=== PATIENT | male | born 1930 | race Caucasian/White ===

== ENCOUNTER 2019-08-09 09:04 | Inpatient (IN) | payer MEDICARE ==
[2019-08-09] MEDS ORDERED: ACETAMINOPHEN 650 MG SUPP.RECT PR ONE (09:10)
[2019-08-09] MEDS ORDERED: MIDAZOLAM HCL 50 MG/100 ML RTUINJ IV PRN (09:17)
--- NOTE | 2019-08-09 09:17 | ER Document Report ---
ED General - General Stated Complaint: UNRESPONSIVE Time Seen by Provider: 08/09/19 09:08 - [facility] Notes: Patient is an 88-year-old male, brought into the emergency department for evaluation via EMS. Entire history at this point is obtained from them. Ana Laura shi's family had stated normally he is "up and around" early in the morning. He did not wake up early which was strange for him. They went into his room to try to wake him, and were unable, so they called EMS. Upon arrival EMS found him with snoring and gurgling respirations, and oxygenation of 72%. They were unable to improve his oxygenation, so decision was made to proceed with intubation. He was intubated in the field. Patient was found to be febrile. His blood pressures were all normal but his lactate was elevated. According to family he is not a very compliant patient. He had a stroke last year, but would not go to the hospital for over a week. Family noted that he may have been "dragging his foot" yesterday, which was new as well. EMS also noted that he had a large amount of diarrhea and urine at the time of their initial evaluation. - Related Data Allergies/Adverse Reactions: No Known Allergies Allergy (Verified 08/09/19 09:41) Past Medical History - General Information source: Emergency Med Personnel - Social History Smoking Status: Unknown if Ever Smoked Family History: Reviewed & Not Pertinent - Past Medical History Cardiac Medical History: Reports: Hx Congestive Heart Failure Neurological Medical History: Reports: Hx Cerebrovascular Accident Review of Systems - Review of Systems -: Yes ROS unobtainable due to patient's medical condition - Patient sedated and intubated Physical Exam - Vital signs Vitals: Temp Pulse BP Pulse Ox 101.1 F H 112 H 156/73 H 96 08/09/19 09:04 08/09/19 09:04 08/09/19 09:04 08/09/19 09:04 - Notes Notes: This is an 88-year-old male who appears his stated age. He is currently intubated, on the ventilator. Head is normocephalic and appears atraumatic, pupils are equal round, reactive to light. Nares were patent, there is some bright red blood in the anterior right nare, no active bleeding. NG noted in the left nostril. Oral mucosa is moist. Heart is mildly tachycardic with normal S1-S2, lungs are clear to auscultation bilaterally. Abdomen soft, nontender. He does have an umbilical hernia which is easily reducible. Extremities without cyanosis or clubbing, 1+ pitting edema noted bilaterally. Skin is hot and dry. Peripheral pulses are equal and bounding. Course - Re-evaluation Re-evalutation: 08/09/19 09:19 Patient presents emergency department for evaluation. The differential diagnosis at this time is extremely broad, given the patient's noncompliance, history of stroke, fact that he was found febrile, and likely aspirated. Sepsis work-up, including troponin and CT scan of the head were ordered. Temperature Lilly was placed. Fever was treated. We also obtained stool for culture and C. difficile. Patient is otherwise vitally stable at this time. His heart rate is still mildly tachycardic. He did receive some IV fluids in route, but I am hesitant to place a large amount of fluids in this 88-year-old male with a history of congestive heart failure, who is currently normotensive. We will continue to monitor. 08/09/19 11:17 I spoke with patient's matheus, his matheus's . Evidently he has been coughing with congestion. There is been for the last several days. Yesterday he was febrile, shaking all over. He saw primary care provider, who started him on Levaquin. It is unclear as to whether or not he is actually taken a dose. The patient does not fact have sepsis. Pneumonia is identified on chest x-ray. He is given IV cefepime. History was clarified with family, he does not have a known history of congestive heart failure. I did go ahead and order 30 cc/kg of his fluid resuscitation. Mag was found to be low, this was ordered replaced as well. I spoke with Dr. Razo, on-call ICU global program director, who will admit the patient for further care. I did discuss care plan with family that was present. They state to me that he had expressed wishes to be a DNR in the past, but no paperwork exist. There is a stepson who has the paperwork started for medical power of morgue technician, but this is not been finalized either. The patient does have biological children, they live in [place]. They are not present here at this time. - Vital Signs Vital signs: Temp Pulse Resp BP Pulse Ox 101.3 F H 112 H 12 173/62 H 97 08/09/19 09:46 08/09/19 09:04 08/09/19 09:46 08/09/19 09:46 08/09/19 10:10 - Laboratory Result Diagrams: 08/09/19 09:07 08/09/19 09:07 Laboratory results interpreted by me: 08/09/19 08/09/19 08/09/19 09:07 09:07 09:07 WBC 1.6 L RBC 4.14 L Hgb 12.2 L Hct 37.5 L RDW 14.5 H Plt Count 81 L Band Neutrophils % 10 H Metamyelocytes % 2 H Abs Neuts (Manual) 1.1 L Abs Lymphs (Manual) 0.4 L ABG pO2 131.3 H ABG O2 Saturation 98.6 H Potassium 2.6 L* BUN 25 H Glucose 120 H Magnesium Alkaline Phosphatase 36 L Total Protein 5.3 L Albumin 3.1 L Urine Protein Urine Ketones Urine Blood 08/09/19 08/09/19 09:07 09:35 WBC RBC Hgb Hct RDW Plt Count Band Neutrophils % Metamyelocytes % Abs Neuts (Manual) Abs Lymphs (Manual) ABG pO2 ABG O2 Saturation Potassium BUN Glucose Magnesium 1.5 L Alkaline Phosphatase Total Protein Albumin Urine Protein 30 H Urine Ketones 20 H Urine Blood LARGE H - Diagnostic Test Radiology reviewed: Reports reviewed Radiology results interpreted by me: 08/09/19 11:19 Chest X-Ray 08/09/19 09:09 IMPRESSION: Bilateral parenchymal opacities right greater than left. SUPPORT DEVICE(S) IN EXPECTED LOCATIONS. Head CT 08/09/19 09:17 IMPRESSION: CHRONIC CHANGES OF ATROPHY AND MICROVASCULAR ISCHEMIA. NO ACUTE PROCESS. EVIDENCE OF ACUTE STROKE: NO. - EKG Interpretation by Me Additional EKG results interpreted by me: 08/09/19 11:19 Sinus tachycardia with rate of 160s per minute. Left axis deviation. Nonspecific ST segment changes in the lateral leads, T wave flattening across the board. No acute ST elevation. Critical Care Note - Critical Care Note Total time excluding time spent on procedures (mins): 45 Discharge - Discharge Clinical Impression: Pneumonia, Sepsis, Hypokalemia, Hypomagnesemia Condition: Critical Disposition: ADMITTED INPATIENT Admitting Provider: Dr. Razo Unit Admitted: ICU
[2019-08-09 09:34] LABS: HEMATOCRIT 37.5 % (37.9-51.0); HEMOGLOBIN 12.2 g/dL (13.5-17.0); MEAN CORPUSCULAR HEMOGLOBIN 29.3 pg (27.0-33.4); MEAN CORPUSCULAR HGB CONC 32.4 g/dL (32.0-36.0); MEAN CORPUSCULAR VOLUME 91 fl (80-97); RED BLOOD COUNT 4.14 10^6/uL (4.35-5.55); RED CELL DISTRIBUTION WIDTH 14.5 % (11.5-14.0)
--- NOTE | 2019-08-09 09:36 | RADIOLOGY REPORT (SQ) ---
EXAM DESCRIPTION: CHEST SINGLE VIEW COMPLETED DATE/TIME: 08/09/2019 9:24 am REASON FOR STUDY: respiratory failure, sepsis COMPARISON: None. EXAM PARAMETERS: NUMBER OF VIEWS: One view TECHNIQUE: Single frontal radiograph of the chest. RADIATION DOSE: N/A LIMITATIONS: None. FINDINGS: TEMPORARY SUPPORT DEVICES:ETT in expected location. NG tube courses below the ruben-diaphr agm in to the stomach. LUNGS AND PLEURA: Bilateral parenchymal opacities right greater than left. No effusions. No masses. No pneumothorax. MEDIASTINUM AND HILAR STRUCTURES: No masses. Contour normal. HEART AND VASCULAR STRUCTURES: Heart normal in size. normal vascularity. Aorta normal for age. BONES: No acute findings. OTHER: No other significant finding. IMPRESSION: Bilateral parenchymal opacities right greater than left. SUPPORT DEVICE(S) IN EXPECTED LOCATIONS. TECHNICAL DOCUMENTATION: JOB ID: [id number] [employer]- All Rights Reserved Reading location - IP/workstation name: [email or web address]
[2019-08-09 09:47] LABS: INTERNATIONAL RATION (INR) 1.21; PROTHROMBIN TIME 15.4 SEC (11.4-15.4)
[2019-08-09 09:50] LABS: ARTERIAL BLOOD BASE EXCESS -1.3 mmol/L; ARTERIAL BLOOD H2CO3 1.25 mmol/L (1.05-1.35); ARTERIAL BLOOD HCO3 23.8 mmol/L (20-24); ARTERIAL BLOOD O2 SATURATION 98.6 % (94-98); ARTERIAL BLOOD PCO2 41.5 mmHg (35-45); ARTERIAL BLOOD PH 7.38 (7.35-7.45); ARTERIAL BLOOD PO2 131.3 mmHg (80-100); ARTERIAL BLOOD TOTAL CO2 25.1 mmol/L (23-27)
[2019-08-09 09:51] LABS: ARTERIAL BLOOD FIO2 7.5
[2019-08-09 09:52] LABS: PLATELET COUNT 81 10^3/uL (150-450)
[2019-08-09 10:00] LABS: ALBUMIN 3.1 g/dL (3.5-5.0); ALKALINE PHOSPHATASE 36 U/L (38-126); ANION GAP 8 (5-19); ASPARTATE AMINO TRANSFERASE 23 U/L (17-59); BILIRUBIN,DIRECT 0.1 mg/dL (0.0-0.4); BILIRUBIN,TOTAL 0.9 mg/dL (0.2-1.3); BLOOD UREA NITROGEN 25 mg/dL (7-20); CALCIUM 8.5 mg/dL (8.4-10.2); CARBON DIOXIDE 27 mmol/L (22-30); CHLORIDE 104 mmol/L (98-107); GLUCOSE 120 mg/dL (75-110); TOTAL PROTEIN 5.3 g/dL (6.3-8.2)
[2019-08-09 10:01] LABS: ABSOLUTE LYMPHOCYTES# (MANUAL) 0.4 10^3/uL (0.5-4.7); ABSOLUTE MONOCYTES # (MANUAL) 0.1 10^3/uL (0.1-1.4); BAND NEUTROPHILS % (MANUAL) 10 % (3-5); BASOPHILS % (MANUAL) 0 % (0-2); EOSINOPHILS % (MANUAL) 0 % (0-6); LYMPHOCYTES % (MANUAL) 24 % (13-45); METAMYELOCYTES % (MANUAL) 2 % (0); MONOCYTES % (MANUAL) 6 % (3-13); SEGMENTED NEUTROPHILS % (MAN) 58 % (42-78); TOTAL CELLS COUNTED 50
[2019-08-09 10:02] LABS: PLATELET COMMENT DECREASED; PLATELET GIANT PRESENT; POIKILOCYTOSIS SLIGHT; POLYCHROMASIA SLIGHT
[2019-08-09 10:06] LABS: APPEARANCE,URINE SLIGHTLY-CLOUDY; BILIRUBIN,URINE NEGATIVE (NEGATIVE); COLOR,URINE YELLOW; GLUCOSE, URINE NEGATIVE (NEGATIVE); KETONES,URINE 20 mg/dL (NEGATIVE); LEUKOCYTE ESTERASE,URINE NEGATIVE (NEGATIVE); NITRITE,URINE NEGATIVE (NEGATIVE); PROTEIN,URINE 30 mg/dL (NEGATIVE); URINE SPECIFIC GRAVITY 1.017; UROBILINOGEN,URINE NEGATIVE mg/dL (<2.0)
[2019-08-09 10:11] LABS: POTASSIUM 2.6 mmol/L (3.6-5.0)
[2019-08-09] MEDS ORDERED: CEFEPIME 2 GM/D5W RTU 2 GM/50 ML RTUPB IV ONE (10:24)
[2019-08-09] MEDS ORDERED: POTASSI CL 40 MEQ/D5-1/2NS 1L 40 MEQ/1,000 ML RTUINJ IV ONE (10:24)
--- NOTE | 2019-08-09 10:34 | RADIOLOGY REPORT (SQ) ---
EXAM DESCRIPTION: CT HEAD WITHOUT COMPLETED DATE/TIME: 08/09/2019 10:23 am REASON FOR STUDY: unresponsive, h/o CVA COMPARISON: None. TECHNIQUE: Axial images acquired through the brain without intravenous contrast. Images reviewed wi th bone, brain and subdural windows. Additional sagittal and coronal reconstructions were generated. Images stored on PACS. All CT scanners at this facility use dose modulation, iterative reconstruction, and/or weight based d osing when appropriate to reduce radiation dose to as low as reasonably achievable (ALARA). [facility]: Dose Right [facility]: CareDose [facility]: Dose Right [facility]: Teradose 4D [facility]: [employer] RADIATION DOSE: CT Rad equipment meets quality standard of care and radiation dose reduction techniq ues were employed. CTDIvol: 53.2 mGy. DLP: 1124 mGy-cm.mGy. LIMITATIONS: None. FINDINGS: VENTRICLES: Prominent. CEREBRUM: No masses. No hemorrhage. No midline shift. Areas of low density in the white matter mos t likely due to chronic micro-vascular ischemic change. No evidence for acute infarction. CEREBELLUM: No masses. No hemorrhage. No alteration of density. No evidence for acute infarction. EXTRAAXIAL SPACES: Age-related involutional change. No fluid collections. No masses. ORBITS AND GLOBE: No intra- or extraconal masses. Normal contour of globe without masses. CALVARIUM: No fracture. PARANASAL SINUSES: Chronic sinus disease. SOFT TISSUES: No mass or hematoma. OTHER: No other significant finding. IMPRESSION: CHRONIC CHANGES OF ATROPHY AND MICROVASCULAR ISCHEMIA. NO ACUTE PROCESS. EVIDENCE OF ACUTE STROKE: NO. TECHNICAL DOCUMENTATION: JOB ID: [id number] Quality ID # [id number]: Final reports with documentation of one or more dose reduction techniques (e.g., Au tomated exposure control, adjustment of the mA and/or kV according to patient size, use of iterative reconstruction technique) 2010 [employer]- All Rights Reserved Reading location - IP/workstation name: [email or web address]
[2019-08-09] MEDS ORDERED: NORMAL SALINE 1000 ML 1,000 ML IV ONE ×2 (11:11→15:00)
[2019-08-09] MEDS ORDERED: NORMAL SALINE 500 ML IV ONE (11:12)
[2019-08-09] MEDS ORDERED: MAGNESIUM SULFATE/D5W 1 GM/100 ML RTUPB IV ONE (11:16)
[2019-08-09] MEDS ORDERED: GLUCAGON,HUMAN RECOMB 1 MG INJ SUBCUT PRN (11:49)
[2019-08-09] MEDS ORDERED: ACETAMINOPHEN 325 MG TABLET NG PRN (11:49)
[2019-08-09] MEDS ORDERED: DEXTROSE 50%-WATER 25 GM/50 ML DISP.SYRIN IV PRN ×2 (11:49)
[2019-08-09] MEDS ORDERED: DEXTROSE 40% GEL 15 GM TUBE PO PRN ×2 (11:49)
[2019-08-09] MEDS ORDERED: ALBUTEROL SULFATE 0.083% NEB 2.5 MG/3 ML AMPUL NEB PRN (11:49)
[2019-08-09] MEDS ORDERED: PHARMACY COMMUNICATION ORDER MC NR (12:00)
--- NOTE | 2019-08-09 12:42 | CRITICAL CARE ADMISSION REPORT ---
HPI Date:: 08/09/19 Time:: 11:30 Reason for ICU Reason:: Intubated respiratory failure HPI: this patient is an 88 year old man who has sick the last few days with cough f ever malaise. Saw primary and placed on levoquin. Awake and talking. Somewhat sluggish. Laid down and found unresponsive. EMS called and sats 72% on RA. No improvement and intubated in field. No hx COPD, heart failue. Famil states he wants to be DNR. Also talked of wanting to be with who . He is now DNR and if he is not extubatable in short term (2 days) they are willing to consider withdrawal of care. History obtained from:: Family - Diagnosis/Plan (1) Acute respiratory failure with hypoxia Is this a current diagnosis for this admission?: Yes Plan: Intubated. Treat for PNA. May be aspiration. Continue antibiotics because we are not certain and some resp illness preceeded this episode. Repeat PCXR ia AM for follow-up (2) Hypokalemia Is this a current diagnosis for this admission?: Yes Plan: K 2.8. Why not clear. CIRCI (critical illness related cortisol insufficiency) is possible. Replace with Potassium and magnesium protocol. Check random cortisol (3) Pneumonia Qualifiers: Pneumonia type: due to unspecified organism Laterality: right Lung location: unspecified part of lung Qualified Code(s): J18.9 - Pneumonia, unspecified organism Is this a current diagnosis for this admission?: Yes Plan: The reason for resiratory failure. Time course is suggestive of aspiration but some respiratory illness preceeded this. Continue antibotics. (4) Sepsis Qualifiers: Sepsis type: sepsis due to unspecified organism Sepsis acute organ dysfunction status: with acute organ dysfunction Severe sepsis acute organ dysfunction type: acute respiratory failure Acute respiratory failure type: with hypoxia Severe sepsis shock status: without septic shock Qualified Code(s): A41.9 - Sepsis, unspecified organism; R65.20 - Severe sepsis without septic shock; J96.01 - Acute respiratory failure with hypoxia Is this a current diagnosis for this admission?: Yes Plan: Temp of 101.8 on admission with HR of 112 and evidence of infiltrate is sepsis or SIRS if in resp failure, severe sepsis with organ dysfunction Past Medical History Cardiac Medical History: Reports: Congestive Heart Failure, Hypertension Social/Family History - Social History Social History Note: Impossible to obtain given intubated status Lives with: Family Smoking Status: Unknown if Ever Smoked - Family History Family History: Reviewed & Not Pertinent - Medication/Allergies Home Medications: Amlodipine Besylate [Norvasc 5 mg Tablet] 5 mg PO DAILY 08/09/19 Atorvastatin Calcium [Lipitor 20 mg Tablet] 20 mg PO QHS 08/09/19 Benzonatate 200 mg PO TID 08/09/19 Donepezil HCl 10 mg PO DAILY 08/09/19 Furosemide [Lasix 20 mg Tablet] 20 mg PO QAM 08/09/19 Levofloxacin [Levaquin] 750 mg PO DAILY 08/09/19 Lisinopril/Hydrochlorothiazide [Lisinopril-Hctz 10-12.5 mg Tab] 1 each PO DAILY 08/09/19 Melatonin/Pyridoxine HCl (B6) [Melatonin 1 Mg Tablet] 1 each PO DAILY 08/09/19 Tamsulosin HCl [Flomax] 0.4 mg PO DAILY 08/09/19 Trazodone HCl 50 mg PO QHS 08/09/19 Allergies/Adverse Reactions: No Known Allergies Allergy (Verified 08/09/19 09:41) Review of Systems ROS unobtainable: Due to endotracheal tube Physical Exam Vital Signs: Temp Pulse Resp BP Pulse Ox 100.6 F H 112 H 15 101/50 L 97 08/09/19 11:31 08/09/19 09:04 08/09/19 11:31 08/09/19 11:31 08/09/19 11:31 Intake & Output 08/08/19 08/09/19 08/10/19 06:59 06:59 06:59 Intake Total 1552 Balance 1552 Weight 78.471 kg Weight/Height Weight 78.471 kg Height 6 ft General appearance: PRESENT: no acute distress Exam: Intubated Eye exam: PRESENT: PERRLA Ear exam: PRESENT: normal external ear exam Mouth exam: PRESENT: dry mucosa Respiratory exam: PRESENT: unlabored Cardiovascular exam: PRESENT: RRR, tachycardia GI/Abdominal exam: PRESENT: soft Rectal exam: PRESENT: deferred Musculoskeletal exam: PRESENT: normal inspection Additional comments: Occasional abraisins on feet. Laboratory/Radiographs Laboratory Results: 08/09/19 09:07 08/09/19 09:07 09/08/09/19 08/09/19 09:07 09:07 09:07 WBC 1.6 L RBC 4.14 L Hgb 12.2 L Hct 37.5 L MCV 91 MCH 29.3 MCHC 32.4 RDW 14.5 H Plt Count 81 L Seg Neutrophils % Not Reportable Carbonic Acid HCO3/H2CO3 Ratio ABG pH ABG pCO2 ABG pO2 ABG HCO3 ABG O2 Saturation ABG Base Excess FiO2 Sodium 139.4 Potassium 2.6 L* Chloride 104 Carbon Dioxide 27 Anion Gap 8 BUN 25 H Creatinine 1.15 Est GFR ( Amer) > 60 Glucose 120 H Lactic Acid 1.7 Calcium 8.5 Magnesium Total Bilirubin 0.9 AST 23 Alkaline Phosphatase 36 L Total Protein 5.3 L Albumin 3.1 L Urine Color Urine Appearance Urine pH Ur Specific [place] Urine Protein Urine Glucose (UA) Urine Ketones Urine Blood Urine Nitrite Ur Leukocyte Esterase Urine WBC (Auto) Urine RBC (Auto) 08/09/19 08/09/19 08/09/19 09:07 09:07 09:35 WBC RBC Hgb Hct MCV MCH MCHC RDW Plt Count Seg Neutrophils % Carbonic Acid 1.25 HCO3/H2CO3 Ratio 19:1 ABG pH 7.38 ABG pCO2 41.5 ABG pO2 131.3 H ABG HCO3 23.8 ABG O2 Saturation 98.6 H ABG Base Excess -1.3 FiO2 7.5 Sodium Potassium Chloride Carbon Dioxide Anion Gap BUN Creatinine Est GFR ( Amer) Glucose Lactic Acid Calcium Magnesium 1.5 L Total Bilirubin AST Alkaline Phosphatase Total Protein Albumin Urine Color YELLOW Urine Appearance SLIGHTLY-CLOUDY Urine pH 5.0 Ur Specific [place] 1.017 Urine Protein 30 H Urine Glucose (UA) NEGATIVE Urine Ketones 20 H Urine Blood LARGE H Urine Nitrite NEGATIVE Ur Leukocyte Esterase NEGATIVE Urine WBC (Auto) 4 Urine RBC (Auto) 23 08/09/19 09:07 Troponin I 0.070 Impressions: Chest X-Ray 08/09/19 09:09 IMPRESSION: Bilateral parenchymal opacities right greater than left. SUPPORT DEVICE(S) IN EXPECTED LOCATIONS. Head CT 08/09/19 09:17 IMPRESSION: CHRONIC CHANGES OF ATROPHY AND MICROVASCULAR ISCHEMIA. NO ACUTE PROCESS. EVIDENCE OF ACUTE STROKE: NO. Critical Time Critical Time (minutes): 40 -: The care of a critically ill patient is dynamic. This note represents a static moment in the admission process. orders and treatments may be given simulataneously and urgentl, and time is not employment representative of the treatment process. This patient requires Critical Care secondary to life threating organ or limb dysfunction. Without the need for Critical Care services, the patient is at risk for increasid mortality and morbidity.
[2019-08-09] MEDS ORDERED: DEXMEDETOMIDINE IN 0.9 % NACL 400 MCG/100 ML RTUPB IV PRN (13:54)
[2019-08-09] MEDS ORDERED: DEXMEDETOMIDINE IN 0.9 % NACL 400 MCG/100 ML RTUPB IV ONE (13:54)
[2019-08-09] MEDS: IPRATROPIUM/ALBUTEROL 0.5-2.5 MG/3 ML AMPUL NEB SCH ×2 (14:15→20:45)
[2019-08-09] MEDS: MAGNESIUM SULFATE/D5W 1 GM/100 ML RTUPB IV SCH ×2 (14:27→14:41)
[2019-08-09] MEDS: NORMAL SALINE 1000 ML 1,000 ML IV PRN ×2 (14:30→22:31)
[2019-08-09 14:36] LABS: WHITE BLOOD COUNT 1.6 10^3/uL (4.0-10.5)
[2019-08-09] MEDS: ENOXAPARIN SODIUM INJ 40 MG/0.4 ML DISP.SYRIN SUBCUT SCH (14:56)
[2019-08-09] MEDS ORDERED: POTASSI CL 20 MEQ/50 ML RIDER 20 MEQ/50 ML RTUPB IV ONE (15:30)
[2019-08-09] MEDS ORDERED: CALCIUM GLUCONATE 1000 MG/10 ML INJ IV ONE (15:30)
[2019-08-09] MEDS: POTASSIUM CHLORIDE 20 MEQ/50 ML RTU IV SCH ×3 (15:50→21:10)
[2019-08-09] MEDS ORDERED: CALCIUM GLUCONATE 2,000 MG in DEXTROSE 5%-WATER 100 ML IV ONE (16:00)
[2019-08-09] MEDS ORDERED: HYDROMORPHONE HCL INJ/PF 2 MG/ML AMPULE ONE (18:09)
[2019-08-09] MEDS: HYDROMORPHONE HCL INJ/PF 2 MG/ML AMPULE IV PRN (18:10)
[2019-08-09] MEDS ORDERED: TRAZODONE HCL 50 MG TABLET NG SCH (22:00)
[2019-08-10] MEDS: IPRATROPIUM/ALBUTEROL 0.5-2.5 MG/3 ML AMPUL NEB SCH ×4 (02:25→19:50)
[2019-08-10] MEDS: HYDROMORPHONE HCL INJ/PF 2 MG/ML AMPULE IV PRN (03:07)
[2019-08-10 04:21] LABS: ABSOLUTE LYMPHOCYTES (AUTO) 0.4 10^3/uL (0.5-4.7); ABSOLUTE MONOCYTES (AUTO) 0.2 10^3/uL (0.1-1.4); ABSOLUTE NEUT (AUTO) 2.4 10^3/uL (1.7-8.2); BASOPHILS % (AUTO) 0.1 % (0-2); EOSINOPHILS % (AUTO) 0.1 % (0-6); HEMATOCRIT 29.4 % (37.9-51.0); LYMPHOCYTES % (AUTO) 13.7 % (13-45); MEAN CORPUSCULAR HEMOGLOBIN 29.9 pg (27.0-33.4); MEAN CORPUSCULAR HGB CONC 33.1 g/dL (32.0-36.0); MEAN CORPUSCULAR VOLUME 90 fl (80-97); MONOCYTES % (AUTO) 5.7 % (3-13); RED BLOOD COUNT 3.25 10^6/uL (4.35-5.55); RED CELL DISTRIBUTION WIDTH 14.8 % (11.5-14.0); SEGMENTED NEUTROPHILS % (AUTO) 80.4 % (42-78); TOTAL CELLS COUNTED % (AUTO) 100 %
[2019-08-10 04:31] LABS: ANION GAP 6 (5-19); BLOOD UREA NITROGEN 31 mg/dL (7-20); CALCIUM 7.7 mg/dL (8.4-10.2); CARBON DIOXIDE 23 mmol/L (22-30); CHLORIDE 108 mmol/L (98-107); GLUCOSE 100 mg/dL (75-110)
[2019-08-10 04:35] LABS: POTASSIUM 4.3 mmol/L (3.6-5.0)
[2019-08-10 04:42] LABS: WHITE BLOOD COUNT 2.9 10^3/uL (4.0-10.5)
[2019-08-10 04:43] LABS: HEMOGLOBIN 9.7 g/dL (13.5-17.0)
[2019-08-10 05:23] LABS: PLATELET COUNT 70 10^3/uL (150-450)
[2019-08-10] MEDS: NORMAL SALINE 1000 ML 1,000 ML IV PRN ×3 (06:31→22:41)
--- NOTE | 2019-08-10 07:11 | RADIOLOGY REPORT (SQ) ---
EXAM DESCRIPTION: CHEST SINGLE VIEW COMPLETED DATE/TIME: 08/10/2019 6:14 am REASON FOR STUDY: Follow up for R sided PNA COMPARISON: 08/09/2019 EXAM PARAMETERS: NUMBER OF VIEWS: One view TECHNIQUE: Single frontal radiograph of the chest. RADIATION DOSE: N/A LIMITATIONS: None. FINDINGS: TEMPORARY SUPPORT DEVICES:ETT in expected location. NG tube courses below the ruben-diaphr agm in to the stomach. LUNGS AND PLEURA: Bibasilar opacities stable. Volume loss in the left lung. Possible left effusion. No masses. No pneumothorax. MEDIASTINUM AND HILAR STRUCTURES: No masses. Contour normal. HEART AND VASCULAR STRUCTURES: Heart normal in size. normal vascularity. Aorta normal for age. BONES: No acute findings. OTHER: No other significant finding. IMPRESSION: Stable basilar opacities with volume loss in the left lower lobe. SUPPORT DEVICE(S) IN EXPECTED LOCATIONS. TECHNICAL DOCUMENTATION: JOB ID: [id number] [employer]- All Rights Reserved Reading location - IP/workstation name: [email or web address]
--- NOTE | 2019-08-10 07:31 | PDOC PROGRESS REPORT ---
Subjective Progress Note for:: 08/10/19 Subjective:: The patient is now awake, smiling Reason For Visit: PNA ASPIRATION OR CAP, SIRS DEHYDRATION,POSSIBLE Physical Exam Vital Signs: Temp Pulse Resp BP Pulse Ox 100.2 F 85 12 132/69 H 99 08/10/19 06:01 08/10/19 02:25 08/10/19 06:01 08/10/19 06:00 08/10/19 06:01 Intake & Output 08/09/19 08/10/19 08/11/19 06:59 06:59 06:59 Intake Total 5711 Output Total 455 Balance 5256 Weight 82 kg General appearance: PRESENT: no acute distress, cooperative Head exam: PRESENT: atraumatic Eye exam: PRESENT: EOMI, PERRLA Ear exam: PRESENT: normal external ear exam Mouth exam: PRESENT: dry mucosa Respiratory exam: PRESENT: rhonchi - At R base. Mild Cardiovascular exam: PRESENT: RRR Vascular exam: PRESENT: normal capillary refill GI/Abdominal exam: PRESENT: soft Rectal exam: PRESENT: deferred Musculoskeletal exam: PRESENT: normal inspection Neurological exam: PRESENT: alert Skin exam: PRESENT: normal color Results Laboratory Results: 08/10/19 04:04 08/10/19 04:04 08/09/19 08/09/19 08/09/19 09:07 09:07 09:07 WBC 1.6 L RBC 4.14 L Hgb 12.2 L Hct 37.5 L MCV 91 MCH 29.3 MCHC 32.4 RDW 14.5 H Plt Count 81 L Seg Neutrophils % Not Reportable Carbonic Acid HCO3/H2CO3 Ratio ABG pH ABG pCO2 ABG pO2 ABG HCO3 ABG O2 Saturation ABG Base Excess FiO2 Sodium 139.4 Potassium 2.6 L* Chloride 104 Carbon Dioxide 27 Anion Gap 8 BUN 25 H Creatinine 1.15 Est GFR ( Amer) > 60 Glucose 120 H Lactic Acid 1.7 Calcium 8.5 Magnesium Total Bilirubin 0.9 AST 23 Alkaline Phosphatase 36 L Total Protein 5.3 L Albumin 3.1 L Urine Color Urine Appearance Urine pH Ur Specific [place] Urine Protein Urine Glucose (UA) Urine Ketones Urine Blood Urine Nitrite Ur Leukocyte Esterase Urine WBC (Auto) Urine RBC (Auto) 08/09/19 08/09/19 08/09/19 09:07 09:07 09:35 WBC RBC Hgb Hct MCV MCH MCHC RDW Plt Count Seg Neutrophils % Carbonic Acid 1.25 HCO3/H2CO3 Ratio 19:1 ABG pH 7.38 ABG pCO2 41.5 ABG pO2 131.3 H ABG HCO3 23.8 ABG O2 Saturation 98.6 H ABG Base Excess -1.3 FiO2 7.5 Sodium Potassium Chloride Carbon Dioxide Anion Gap BUN Creatinine Est GFR ( Amer) Glucose Lactic Acid Calcium Magnesium 1.5 L Total Bilirubin AST Alkaline Phosphatase Total Protein Albumin Urine Color YELLOW Urine Appearance SLIGHTLY-CLOUDY Urine pH 5.0 Ur Specific [place] 1.017 Urine Protein 30 H Urine Glucose (UA) NEGATIVE Urine Ketones 20 H Urine Blood LARGE H Urine Nitrite NEGATIVE Ur Leukocyte Esterase NEGATIVE Urine WBC (Auto) 4 Urine RBC (Auto) 08/10/19 08/10/19 08/10/19 04:04 04:04 04:04 WBC 2.9 L D RBC 3.25 L Hgb 9.7 L D Hct 29.4 L MCV 90 MCH 29.9 MCHC 33.1 RDW 14.8 H Plt Count 70 L Seg Neutrophils % 80.4 H Carbonic Acid HCO3/H2CO3 Ratio ABG pH ABG pCO2 ABG pO2 ABG HCO3 ABG O2 Saturation ABG Base Excess FiO2 Sodium 137.1 Potassium 4.3 D Chloride 108 H Carbon Dioxide 23 Anion Gap 6 BUN 31 H Creatinine 1.17 Est GFR ( Amer) > 60 Glucose 100 Lactic Acid Calcium 7.7 L Magnesium 2.0 Total Bilirubin AST Alkaline Phosphatase Total Protein Albumin Urine Color Urine Appearance Urine pH Ur Specific [place] Urine Protein Urine Glucose (UA) Urine Ketones Urine Blood Urine Nitrite Ur Leukocyte Esterase Urine WBC (Auto) Urine RBC (Auto) 08/09/19 09:07 Troponin I 0.070 Impressions: Head CT 08/09/19 09:17 IMPRESSION: CHRONIC CHANGES OF ATROPHY AND MICROVASCULAR ISCHEMIA. NO ACUTE PROCESS. EVIDENCE OF ACUTE STROKE: NO. Chest X-Ray 08/10/19 06:00 IMPRESSION: Stable basilar opacities with volume loss in the left lower lobe. SUPPORT DEVICE(S) IN EXPECTED LOCATIONS. Assessment & Plan - Diagnosis (1) Acute respiratory failure with hypoxia Is this a current diagnosis for this admission?: Yes Plan: Seems to be resolved. But he is still intubated. Awake aret not hypoxic. Attempt to wean and extubate today. (2) Hypokalemia Is this a current diagnosis for this admission?: Yes Plan: Resolved. K level 4.3. (3) Pneumonia Qualifiers: Pneumonia type: aspiration pneumonia Laterality: right Lung location: unspecified part of lung Is this a current diagnosis for this admission?: Yes Plan: Mostly an aspiration. Clinically resolving. Scant to moderste secretions. (4) Sepsis Qualifiers: Sepsis type: sepsis due to unspecified organism Sepsis acute organ dys function status: with acute organ dysfunction Severe sepsis acute organ d ysfunction type: acute respiratory failure Acute respiratory failure type: with hypoxia Severe sepsis shock status: without septic shock Qualified Code(s): A41.9 - Sepsis, unspecified organism; R65.20 - Severe sepsis without septic shock; J96.01 - Acute respiratory failure with hypoxia Is this a current diagnosis for this admission?: Yes (5) Hypomagnesemia Is this a current diagnosis for this admission?: Yes Plan: Level today is 2.1 - Time Time Spent with patient: 35 or more minutes Total Critical Time (Minutes): 35 Medications reviewed and adjusted accordingly: Yes Anticipated discharge: Home Within: within 72 hours - Inpatient Certification Medical Necessity: Failure to Improve With Outpatient Therapy, Need Close Hilary toring Due to Risk of Patient Decompensation
[2019-08-10] MEDS: TAMSULOSIN HCL 0.4 MG CAP.SR.24H PO SCH (09:29)
[2019-08-10] MEDS: ENOXAPARIN SODIUM INJ 40 MG/0.4 ML DISP.SYRIN SUBCUT SCH (09:29)
[2019-08-10] MEDS ORDERED: (PENDING PHARMACY ID) (Donepezil Hcl [Donepezil Hcl] 10 MG) PO SCH (10:00)
[2019-08-10] MEDS ORDERED: DONEPEZIL HCL 5 MG TABLET NG SCH (10:00)
[2019-08-10] MEDS ORDERED: ACETAMINOPHEN 325 MG TABLET PO PRN (13:30)
[2019-08-10] MEDS ORDERED: LOPERAMIDE HCL 2 MG CAPSULE PO ONE (20:38)
[2019-08-10] MEDS ORDERED: TRAZODONE HCL 50 MG TABLET PO SCH (22:00)
[2019-08-11] MEDS: IPRATROPIUM/ALBUTEROL 0.5-2.5 MG/3 ML AMPUL NEB SCH ×2 (01:59→08:27)
[2019-08-11 04:23] LABS: ABSOLUTE LYMPHOCYTES (AUTO) 0.7 10^3/uL (0.5-4.7); ABSOLUTE MONOCYTES (AUTO) 0.1 10^3/uL (0.1-1.4); BASOPHILS % (AUTO) 0.3 % (0-2); EOSINOPHILS % (AUTO) 0.8 % (0-6); HEMATOCRIT 28.9 % (37.9-51.0); HEMOGLOBIN 9.5 g/dL (13.5-17.0); LYMPHOCYTES % (AUTO) 17.1 % (13-45); MEAN CORPUSCULAR HEMOGLOBIN 29.7 pg (27.0-33.4); MEAN CORPUSCULAR HGB CONC 32.9 g/dL (32.0-36.0); MEAN CORPUSCULAR VOLUME 90 fl (80-97); MONOCYTES % (AUTO) 3.6 % (3-13); RED CELL DISTRIBUTION WIDTH 14.7 % (11.5-14.0); SEGMENTED NEUTROPHILS % (AUTO) 78.2 % (42-78); TOTAL CELLS COUNTED % (AUTO) 100 %; WHITE BLOOD COUNT 3.8 10^3/uL (4.0-10.5)
[2019-08-11 04:41] LABS: BLOOD UREA NITROGEN 28 mg/dL (7-20); CALCIUM 7.5 mg/dL (8.4-10.2); GLUCOSE 84 mg/dL (75-110); POTASSIUM 3.5 mmol/L (3.6-5.0)
[2019-08-11 04:59] LABS: PLATELET COUNT 70 10^3/uL (150-450)
[2019-08-11 05:01] LABS: CARBON DIOXIDE 24 mmol/L (22-30); CHLORIDE 110 mmol/L (98-107)
[2019-08-11 05:07] LABS: ANION GAP 4 (5-19)
[2019-08-11] MEDS: NORMAL SALINE 1000 ML 1,000 ML IV PRN (05:59)
[2019-08-11] MEDS ORDERED: VANCOMYCIN HCL 0 MG in DEXTROSE 5%-WATER 250 ML IV NR (09:00)
[2019-08-11] MEDS ORDERED: ACETAMINOPHEN 325 MG TABLET NG PRN (09:30)
[2019-08-11] MEDS ORDERED: FUROSEMIDE INJ/PF 40 MG/4 ML SDV IV ONE (09:30)
[2019-08-11] MEDS: HYDROCHLOROTHIAZIDE 25 MG TABLET NG SCH (10:48)
[2019-08-11] MEDS: LISINOPRIL 10 MG TABLET NG SCH (10:48)
[2019-08-11] MEDS: TAMSULOSIN HCL 0.4 MG CAP.SR.24H PO SCH (10:48)
[2019-08-11] MEDS: DONEPEZIL HCL 5 MG TABLET NG SCH (10:48)
[2019-08-11] MEDS: CEFEPIME 2 GM/D5W RTU 2 GM/50 ML RTUPB IV SCH ×2 (10:50→22:08)
[2019-08-11] MEDS: AZITHROMYCIN 500 MG in DEXTROSE 5%-WATER 250 ML IV SCH (10:50)
--- NOTE | 2019-08-11 11:06 | PDOC PROGRESS REPORT ---
Subjective Progress Note for:: 08/11/19 Subjective:: ICU progress Note Pt had no acute overnight events. Has no complaints. Reason For Visit: PNA ASPIRATION OR CAP, SIRS DEHYDRATION,POSSIBLE Physical Exam Vital Signs: Temp Pulse Resp BP Pulse Ox 99.0 F 77 19 149/66 H 97 08/11/19 08:00 08/11/19 10:00 08/11/19 10:00 08/11/19 10:00 08/11/19 10:00 Intake & Output 08/10/19 08/11/19 08/12/19 06:59 06:59 06:59 Intake Total 5711 2913 Output Total 455 940 360 Balance 5256 1972 - Weight 82 kg 81.4 kg General appearance: PRESENT: no acute distress, well-developed, well-nourished Head exam: PRESENT: atraumatic, normocephalic Respiratory exam: PRESENT: decreased breath sounds, unlabored Cardiovascular exam: PRESENT: RRR GI/Abdominal exam: PRESENT: soft, other - non-tender, non-distended Extremities exam: PRESENT: other - trace edema Neurological exam: PRESENT: alert, awake Results Laboratory Results: 08/11/19 03:52 08/11/19 03:52 08/11/19 08/11/19 03:52 03:52 WBC 3.8 L RBC 3.20 L Hgb 9.5 L Hct 28.9 L MCV 90 MCH 29.7 MCHC 32.9 RDW 14.7 H Plt Count 70 L Seg Neutrophils % 78.2 H Sodium 138.2 Potassium 3.5 L Chloride 110 H Carbon Dioxide 24 Anion Gap 4 L BUN 28 H Creatinine 0.90 Est GFR ( Amer) > 60 Glucose 84 Calcium 7.5 L 08/09/19 09:35 Catheterized Urine Urine Culture - Final NO GROWTH 2 DAYS 08/09/19 09:07 Troponin I 0.070 Impressions: Head CT 08/09/19 09:17 IMPRESSION: CHRONIC CHANGES OF ATROPHY AND MICROVASCULAR ISCHEMIA. NO ACUTE PROCESS. EVIDENCE OF ACUTE STROKE: NO. Chest X-Ray 08/10/19 06:00 IMPRESSION: Stable basilar opacities with volume loss in the left lower lobe. SUPPORT DEVICE(S) IN EXPECTED LOCATIONS. Assessment & Plan - Diagnosis (1) Acute respiratory failure with hypoxia Is this a current diagnosis for this admission?: Yes (2) Pneumonia Qualifiers: Pneumonia type: aspiration pneumonia Laterality: right Lung location: unspecified part of lung Is this a current diagnosis for this admission?: Yes (3) Leukopenia Qualifiers: Leukopenia type: unspecified Qualified Code(s): D72.819 - Decreased white blood cell count, unspecified Is this a current diagnosis for this admission?: Yes (4) Thrombocytopenia Is this a current diagnosis for this admission?: Yes - Plan Summary Plan Summary: Assessment: 89 yo man with acute hypoxic respiratory failure, PNA, sepsis, leukopenia, thrombocytopenia, HTN Plan: 1. Respiratory: acute hypoxic respiratory failure, resolved. Pt was extubated yesterday. Is stable on RA. 2. Pulmonary: PNA. Vanc, cefepime, and azithromycin 3. CV: HTN. Will d/c IVF and give lasix. Resume home linsinopril and HCTZ 4. ID: sepsis, PNA. Vanc, cefepime, azithromycin. Check for influenza and urine legionella antigen 5. Heme: leukopenia due to sepsis, resolving. Thrombocytopenia due to sepsis. Will d/c lovenox 6. Nutrition: cardiac diet 7. Endocrine: monitoring blood sugars 8. Prophylaxis: arixtra for DVT prophylaxis. 9. PT, OOBTC, ambulate 10. Discharge planning 11. Stable for transfer out of ICU.
[2019-08-11] MEDS ORDERED: POTASSIUM CHLORIDE 10 MEQ CAPSULE.ER PO ONE (11:30)
[2019-08-11 11:48] LABS: PATH REVIEW PATHOLOGIST REVIEWED
[2019-08-11] MEDS: FONDAPARINUX SODIUM INJ 2.5 MG/0.5 ML DISP.SYRIN SUBCUT SCH (13:03)
[2019-08-11] MEDS: VANCOMYCIN HCL 750 MG in DEXTROSE 5%-WATER 250 ML IV SCH ×2 (13:04→22:09)
--- NOTE | 2019-08-11 18:21 | Progress Note ---
Provider Note Provider Note: 89-year-old male with medical history of hypertension, hyperlipidemia, dementia, and BPH was admitted to ICU on 08/09/2019 for acute history failure with hypoxia, hypokalemia, pneumonia, and sepsis. Intubated on admission and started on cefepime and vancomycin and azithromycin. Acute disorder symptoms resolved, PT extubated on 08/10/2019. Currently on room air SPO2 WNL. Initially seem to be hypovolemic, and was given Lasix. Once euvolemic patient was restarted on his lisinopril and hydrochlorothiazide. Patient was transferred to floor on 08/11/2019. On azithromycin and cefepime vancomycin day 3. Cultures have been negative for blood culture growing gram-positive cocci in clusters pending sensitivity. He is normotensive and SPO2 WNL on room air. We will continue the current antibiotics and antihypertensives. Can be switched to p.o. antibiotics if culture sensitivity is final.
[2019-08-11] MEDS: TRAZODONE HCL 50 MG TABLET NG SCH (22:07)
[2019-08-12 06:30] LABS: ABSOLUTE EOSINOPHILS # (AUTO) 0.1 10^3/uL (0.0-0.6); ABSOLUTE LYMPHOCYTES (AUTO) 0.7 10^3/uL (0.5-4.7); ABSOLUTE MONOCYTES (AUTO) 0.1 10^3/uL (0.1-1.4); ABSOLUTE NEUT (AUTO) 2.7 10^3/uL (1.7-8.2); BASOPHILS % (AUTO) 0.4 % (0-2); EOSINOPHILS % (AUTO) 2.3 % (0-6); HEMATOCRIT 27.6 % (37.9-51.0); HEMOGLOBIN 9.5 g/dL (13.5-17.0); LYMPHOCYTES % (AUTO) 20.1 % (13-45); MEAN CORPUSCULAR HEMOGLOBIN 30.2 pg (27.0-33.4); MEAN CORPUSCULAR HGB CONC 34.2 g/dL (32.0-36.0); MEAN CORPUSCULAR VOLUME 88 fl (80-97); MONOCYTES % (AUTO) 3.1 % (3-13); RED BLOOD COUNT 3.12 10^6/uL (4.35-5.55); RED CELL DISTRIBUTION WIDTH 14.4 % (11.5-14.0); SEGMENTED NEUTROPHILS % (AUTO) 74.1 % (42-78); TOTAL CELLS COUNTED % (AUTO) 100 %; WHITE BLOOD COUNT 3.7 10^3/uL (4.0-10.5)
[2019-08-12 06:38] LABS: ALBUMIN 2.3 g/dL (3.5-5.0); ALKALINE PHOSPHATASE 32 U/L (38-126); ANION GAP 6 (5-19); ASPARTATE AMINO TRANSFERASE 25 U/L (17-59); BILIRUBIN,DIRECT 0.2 mg/dL (0.0-0.4); BILIRUBIN,TOTAL 0.8 mg/dL (0.2-1.3); BLOOD UREA NITROGEN 25 mg/dL (7-20); CALCIUM 7.9 mg/dL (8.4-10.2); CARBON DIOXIDE 25 mmol/L (22-30); CHLORIDE 107 mmol/L (98-107); GLUCOSE 91 mg/dL (75-110); POTASSIUM 3.4 mmol/L (3.6-5.0); TOTAL PROTEIN 4.3 g/dL (6.3-8.2)
[2019-08-12 07:13] LABS: PLATELET COUNT 85 10^3/uL (150-450)
[2019-08-12] MEDS ORDERED: OXYMETAZOLINE HCL 0.05% NASAL SPRAY 15 ML BOTTLE NASL ONE (09:30)
--- NOTE | 2019-08-12 10:38 | PDOC PROGRESS REPORT ---
Subjective Progress Note for:: 08/12/19 Subjective:: 08/12/2019 was admitted for weakness and fever and probable pneumonia patient is currently on IV Levaquin patient also had leukopenia Baptiste thrombocytopenia on admission. I reviewed the chart I do not see any notation of the etiology. Patient was thought to be septic on arrival however. On rounds this morning patient had a nosebleed out of the left nares seems to be controlled by pressure most recent platelet count however is 85,000 Reason For Visit: PNA ASPIRATION OR CAP, SIRS DEHYDRATION,POSSIBLE Physical Exam Vital Signs: Temp Pulse Resp BP Pulse Ox 99.2 F 65 18 129/51 H 93 08/11/19 23:00 08/12/19 10:10 08/12/19 10:10 08/11/19 23:00 08/12/19 10:10 Intake & Output 08/11/19 08/12/19 08/13/19 06:59 06:59 06:59 Intake Total 2913 1850 Output Total 940 3100 Balance 1972 -1249 Weight 81.4 kg 81.4 kg General appearance: PRESENT: mild distress, other - In [place] to what appears to be an anterior nosebleed Head exam: PRESENT: other - Comment on the left nares Respiratory exam: PRESENT: clear to auscultation reese. ABSENT: rales, rhonchi, wheezes Cardiovascular exam: PRESENT: RRR. ABSENT: diastolic murmur, rubs, systolic murmur Neurological exam: PRESENT: alert, awake, oriented to person, oriented to place, oriented to time, oriented to situation, CN II-XII grossly intact. ABSENT: motor sensory deficit Psychiatric exam: PRESENT: appropriate affect, normal mood. ABSENT: homicidal ideation, suicidal ideation Results Laboratory Results: 08/12/19 04:29 08/12/19 04:29 08/12/19 08/12/19 04:29 04:29 WBC 3.7 L RBC 3.12 L Hgb 9.5 L Hct 27.6 L MCV 88 MCH 30.2 MCHC 34.2 RDW 14.4 H Plt Count 85 L Seg Neutrophils % 74.1 Sodium 138.2 Potassium 3.4 L Chloride 107 Carbon Dioxide 25 Anion Gap 6 BUN 25 H Creatinine 0.95 Est GFR ( Amer) > 60 Glucose 91 Calcium 7.9 L Magnesium 2.0 Total Bilirubin 0.8 AST 25 Alkaline Phosphatase 32 L Total Protein 4.3 L Albumin 2.3 L 08/09/19 13:39 Tracheal Aspirate Gram Stain - Final 08/09/19 13:39 Tracheal Aspirate Sputum Culture - Final REDUCED NORMAL STEPH 08/09/19 09:35 Catheterized Urine Urine Culture - Final NO GROWTH 2 DAYS 08/09/19 09:07 Troponin I 0.070 Impressions: Head CT 08/09/19 09:17 IMPRESSION: CHRONIC CHANGES OF ATROPHY AND MICROVASCULAR ISCHEMIA. NO ACUTE PROCESS. EVIDENCE OF ACUTE STROKE: NO. Chest X-Ray 08/10/19 06:00 IMPRESSION: Stable basilar opacities with volume loss in the left lower lobe. SUPPORT DEVICE(S) IN EXPECTED LOCATIONS. Assessment and Plan - Diagnosis (1) Hypocalcemia Is this a current diagnosis for this admission?: Yes Plan: 08/12/2019. on admission calcium level was 7.7 it is now 7.9, will replace IV calcium today (2) Acute respiratory failure with hypoxia Is this a current diagnosis for this admission?: Yes Plan: 08/12/2019 patient's O2 sat 93% on room air patient in no respiratory distress. (3) Hypomagnesemia Is this a current diagnosis for this admission?: Yes Plan: 08/12/2019 on admission magnesium level was 1.5 today it is stable at 2.0 (4) Leukopenia Qualifiers: Leukopenia type: unspecified Qualified Code(s): D72.819 - Decreased white blood cell count, unspecified Is this a current diagnosis for this admission?: Yes Plan: 08/12/2019 on admission white count was 1.6 today it is 3.7 (5) Pneumonia Qualifiers: Pneumonia type: aspiration pneumonia Laterality: right Lung location: unspecified part of lung Is this a current diagnosis for this admission?: Yes Plan: 08/12/2019 chest x-ray done on 929. Previous day chest x-ray on 08-09 showed stable basilar opacities with volume loss in the left lower lobe (6) Thrombocytopenia Is this a current diagnosis for this admission?: Yes (7) Hypokalemia Is this a current diagnosis for this admission?: Yes Plan: 08-12-19 on admission potassium was 4.3 today it is 3.4 will replace today. - Time Time Spent with patient: 35 or more minutes
[2019-08-12] MEDS ORDERED: CALCIUM GLUCONATE 2,000 MG in DEXTROSE 5%-WATER 100 ML IV ONE (10:39)
[2019-08-12] MEDS: FONDAPARINUX SODIUM INJ 2.5 MG/0.5 ML DISP.SYRIN SUBCUT SCH (10:59)
[2019-08-12] MEDS: CEFEPIME 2 GM/D5W RTU 2 GM/50 ML RTUPB IV SCH ×2 (11:03→21:19)
[2019-08-12] MEDS: LISINOPRIL 10 MG TABLET NG SCH (11:03)
[2019-08-12] MEDS: DONEPEZIL HCL 5 MG TABLET NG SCH (11:03)
[2019-08-12] MEDS: HYDROCHLOROTHIAZIDE 25 MG TABLET NG SCH (11:04)
[2019-08-12] MEDS: TAMSULOSIN HCL 0.4 MG CAP.SR.24H PO SCH (11:04)
[2019-08-12] MEDS: VANCOMYCIN HCL 750 MG in DEXTROSE 5%-WATER 250 ML IV SCH ×2 (11:51→21:19)
[2019-08-12] MEDS: POTASSIUM CHLORIDE 20 MEQ PACKET PO SCH ×2 (12:30→21:19)
[2019-08-12] MEDS: AZITHROMYCIN 500 MG in DEXTROSE 5%-WATER 250 ML IV SCH (13:55)
[2019-08-12 19:00] LABS: C DIFFICILE GDH NEGATIVE (NEGATIVE)
[2019-08-12] MEDS: TRAZODONE HCL 50 MG TABLET NG SCH (21:19)
[2019-08-12 22:06] LABS: VANCOMYCIN,TROUGH 9.4 ug/mL (5.0-20.0)
[2019-08-13] MEDS ORDERED: INFLUENZA QUAD (6MOS+) 2019-20 VAC 0.5 ML SYR IM ONE (08:00)
[2019-08-13 09:23] LABS: HEMATOCRIT 32.6 % (37.9-51.0); HEMOGLOBIN 10.9 g/dL (13.5-17.0); MEAN CORPUSCULAR HEMOGLOBIN 29.6 pg (27.0-33.4); MEAN CORPUSCULAR HGB CONC 33.4 g/dL (32.0-36.0); MEAN CORPUSCULAR VOLUME 89 fl (80-97); PLATELET COUNT 106 10^3/uL (150-450); RED BLOOD COUNT 3.68 10^6/uL (4.35-5.55); RED CELL DISTRIBUTION WIDTH 14.5 % (11.5-14.0); WHITE BLOOD COUNT 4.8 10^3/uL (4.0-10.5)
[2019-08-13 09:40] LABS: ALBUMIN 2.8 g/dL (3.5-5.0); ALKALINE PHOSPHATASE 37 U/L (38-126); ANION GAP 6 (5-19); ASPARTATE AMINO TRANSFERASE 25 U/L (17-59); BILIRUBIN,DIRECT 0.1 mg/dL (0.0-0.4); BILIRUBIN,TOTAL 0.6 mg/dL (0.2-1.3); BLOOD UREA NITROGEN 19 mg/dL (7-20); CALCIUM 8.4 mg/dL (8.4-10.2); CARBON DIOXIDE 26 mmol/L (22-30); CHLORIDE 103 mmol/L (98-107); GLUCOSE 111 mg/dL (75-110); POTASSIUM 3.4 mmol/L (3.6-5.0)
[2019-08-13 09:55] LABS: ABSOLUTE LYMPHOCYTES# (MANUAL) 1.2 10^3/uL (0.5-4.7); ABSOLUTE MONOCYTES # (MANUAL) 0.1 10^3/uL (0.1-1.4); BASOPHILS % (MANUAL) 0 % (0-2); EOSINOPHILS % (MANUAL) 0 % (0-6); LYMPHOCYTES % (MANUAL) 25 % (13-45); MONOCYTES % (MANUAL) 3 % (3-13); SEGMENTED NEUTROPHILS % (MAN) 72 % (42-78); TOTAL CELLS COUNTED 100
[2019-08-13 09:58] LABS: PLATELET COMMENT DECREASED
[2019-08-13] MEDS ORDERED: VANCOMYCIN HCL 1,000 MG in DEXTROSE 5%-WATER 250 ML IV SCH (10:00)
--- NOTE | 2019-08-13 10:47 | PDOC PROGRESS REPORT ---
Subjective Progress Note for:: 08/13/19 Subjective:: 08/12/2019 was admitted for weakness and fever and probable pneumonia patient is currently on IV Levaquin patient also had leukopenia with thrombocytopenia on admission. I reviewed the chart I do not see any notation of the etiology. Patient was thought to be septic on arrival however. On rounds this morning patient had a nosebleed out of the left nares seems to be controlled by pressure most recent platelet count however is 85,000 08/13/2019 patient looks significantly improved, much more alert, much more conversant less diarrhea today. Chest x-ray is pending from today labs are either improved or stable blood cultures urine cultures basically are negative we will DC vancomycin. Will remain on Zithromax and cefepime while in the hospital but no antibiotics needed at time of discharge Reason For Visit: PNA ASPIRATION OR CAP, SIRS DEHYDRATION,POSSIBLE Physical Exam Vital Signs: Temp Pulse Resp BP Pulse Ox 97.6 F 66 16 154/63 H 90 L 08/13/19 04:40 08/13/19 09:52 08/13/19 09:52 08/13/19 04:40 08/13/19 09:52 Intake & Output 08/12/19 08/13/19 08/14/19 06:59 06:59 06:59 Intake Total 1850 850 Output Total 3100 500 Balance -1250 350 Weight 81.4 kg 80.5 kg Results Laboratory Results: 08/13/19 09:08 08/13/19 09:08 08/13/19 08/13/19 09:08 09:08 WBC 4.8 RBC 3.68 L Hgb 10.9 L Hct 32.6 L MCV 89 MCH 29.6 MCHC 33.4 RDW 14.5 H Plt Count 106 L Seg Neutrophils % Not Reportable Sodium 135.3 L Potassium 3.4 L Chloride 103 Carbon Dioxide 26 Anion Gap 6 BUN 19 Creatinine 0.80 Est GFR ( Amer) > 60 Glucose 111 H Calcium 8.4 Total Bilirubin 0.6 AST 25 Alkaline Phosphatase 37 L Total Protein 5.0 L Albumin 2.8 L 08/09/19 13:39 Tracheal Aspirate Gram Stain - Final 08/09/19 13:39 Tracheal Aspirate Sputum Culture - Final REDUCED NORMAL STEPH 08/09/19 09:07 Blood Blood Culture - Final Staphylococcus Epidermidis Clostridium Perfringens 08/11/19 13:00 Catheterized Urine Legionella Urinary Antigen - Final 08/09/19 09:07 Troponin I 0.070 Impressions: Head CT 08/09/19 09:17 IMPRESSION: CHRONIC CHANGES OF ATROPHY AND MICROVASCULAR ISCHEMIA. NO ACUTE PROCESS. EVIDENCE OF ACUTE STROKE: NO. Chest X-Ray 08/10/19 06:00 IMPRESSION: Stable basilar opacities with volume loss in the left lower lobe. SUPPORT DEVICE(S) IN EXPECTED LOCATIONS. Assessment and Plan - Diagnosis (2) Acute respiratory failure with hypoxia Is this a current diagnosis for this admission?: Yes (3) Hypomagnesemia Is this a current diagnosis for this admission?: Yes (4) Leukopenia Qualifiers: Leukopenia type: unspecified Qualified Code(s): D72.819 - Decreased white blood cell count, unspecified Is this a current diagnosis for this admission?: Yes (5) Pneumonia Qualifiers: Pneumonia type: aspiration pneumonia Laterality: right Lung location: unspecified part of lung Is this a current diagnosis for this admission?: Yes (6) Thrombocytopenia Is this a current diagnosis for this admission?: Yes (7) Hypokalemia Is this a current diagnosis for this admission?: Yes - Plan Summary Summary: Cultures urine cultures showed no pathogens continue IV Zithromax and IV cefepime while in the hospital. DC vancomycin. Chest x-ray from today is pending. Labs are either stable or improved.. Patient is on potassium 20 mEq every 12 hours will need to continue this at home Vital signs reveal pulse of in the 60s and regular stable, blood pressure approximate 150/60 and stable O2 sat in the 90s on room air, patient is afebrile now for several days. Possibly discharge patient tomorrow - Time Time Spent with patient: 25-34 minutes
[2019-08-13] MEDS: DONEPEZIL HCL 5 MG TABLET NG SCH (11:44)
[2019-08-13] MEDS: TAMSULOSIN HCL 0.4 MG CAP.SR.24H PO SCH (11:44)
[2019-08-13] MEDS: LISINOPRIL 10 MG TABLET NG SCH (11:44)
[2019-08-13] MEDS: HYDROCHLOROTHIAZIDE 25 MG TABLET NG SCH (11:45)
[2019-08-13] MEDS: POTASSIUM CHLORIDE 20 MEQ PACKET PO SCH ×2 (11:45→21:54)
[2019-08-13] MEDS: AZITHROMYCIN 500 MG in DEXTROSE 5%-WATER 250 ML IV SCH (11:46)
[2019-08-13] MEDS: CEFEPIME 2 GM/D5W RTU 2 GM/50 ML RTUPB IV SCH ×2 (11:46→21:51)
[2019-08-13] MEDS: FONDAPARINUX SODIUM INJ 2.5 MG/0.5 ML DISP.SYRIN SUBCUT SCH (11:47)
--- NOTE | 2019-08-13 14:37 | RADIOLOGY REPORT (SQ) ---
EXAM DESCRIPTION: CHEST 2 VIEWS COMPLETED DATE/TIME: 08/13/2019 2:11 pm REASON FOR STUDY: follow up COMPARISON: 08/10/2019 EXAM PARAMETERS: NUMBER OF VIEWS: two views TECHNIQUE: Digital Frontal and Lateral radiographic views of the chest acquired. RADIATION DOSE: NA LIMITATIONS: none FINDINGS: LUNGS AND PLEURA: Small pleural effusions. Retrocardiac opacification on the left. Ill-d efined opacification in the right base. MEDIASTINUM AND HILAR STRUCTURES: No masses or contour abnormalities. HEART AND VASCULAR STRUCTURES: Heart normal size. No evidence for failure. BONES: No acute findings. HARDWARE: None in the chest. OTHER: No other significant finding. IMPRESSION: Small pleural effusions. Airspace disease in the left base, atelectasis versus pneumoni a. Limited airspace disease in the right base, pneumonia versus atelectasis. TECHNICAL DOCUMENTATION: JOB ID: [id number] [employer]- All Rights Reserved Reading location - IP/workstation name: [email or web address]
--- NOTE | 2019-08-13 19:56 | EKG REPORT ---
SEVERITY:- OTHERWISE NORMAL ECG - SINUS TACHYCARDIA BORDERLINE LEFT AXIS DEVIATION : Confirmed by: Lamar Villagomez MD 13-Aug-2019 19:55:44
--- NOTE | 2019-08-13 20:54 | XCELERA REPORT ---
[address] [address] Transthoracic Echocardiogram Report Name: NIKHIL IRELAND Age: 89 yrs Gender: Male : 1930 Patient Status: Inpatient Patient Location: [facility]^A Study Date: 08/12/2019 03:08 PM Height: 72 in Weight: 179 lb BSA: 2.0 m2 Procedure: A two-dimensional transthoracic echocardiogram with color flow and Doppler was performed. The study was technically difficult with many images being suboptimal in quality. POOR endocardial visualsation. Reason For Study: Hx of chf History: CHF. Ordering Physician: FARZAD MOTA Performed By: Karen Oakley Interpretation Summary POOR endocardial visualsation. The left ventricle is grossly normal size. There is normal left ventricular wall thickness. LV EF is 55^ to 60% The left ventricular ejection fraction is within normal limits. LV diastolic function not assessed. The left ventricular wall motion is normal. There is no thrombus. cannot assess ASD ,VSD ,or PFO. The left atrial size is normal. There is no evidence of mitral valve prolapse. There is no mitral valve stenosis. There is no vegetation seen on the mitral valve. There is a mild amount of mitral regurgitation There is no aortic valve stenosis No aortic regurgitation is present. There is no tricuspid stenosis. Poor introgation.Probable trace TR with normal RVSP of 14 to 19 mm of Hg , with RA mean of 5 to 10. The pulmonic valve is not well visualized. The aortic root is not well visualized. The inferior vena cava appeared normal and decreased > 50% with respiration (RAP 5-10 mmHg) Minimal pericardial effusion. MMode/2D Measurements & Calculations RVDd: 3.2 cm LVIDd: 3.2 cm FS: 51.2 % Ao root diam: 1.6 cm IVSd: 0.99 cm LVIDs: 1.6 cm EDV(Teich): 42.2 mlAo root area: LVPWd: 8.0 cm ESV(Teich): 7.0 ml 1.9 cm2 EF(Teich): 83.5 % LVOT diam: 4.1 cm EDV(MOD-sp4): SV(MOD-sp4): LVOT area: 80.5 ml 40.0 ml ESV(MOD-sp4): 13.3 cm2 40.4 ml EF(MOD-sp4): 49.7 % Doppler Measurements & Calculations Ao V2 max: LV V1 max PG: PA V2 max: TR max demario: 153.7 cm/sec 3.7 mmHg 141.5 cm/sec 150.3 cm/sec Ao max P.4 mmHg LV V1 max: PA max P.0 mmHg TR max P.0 mmHg 96.2 cm/sec AUSTEN(V,D): 8.3 cm2 Left Ventricle The left ventricle is grossly normal size. There is normal left ventricular wall thickness. LV EF is 55^ to 60%. The left ventricular ejection fraction is within normal limits. LV diastolic function not assessed. The left ventricular wall motion is normal. There is no thrombus. cannot assess ASD ,VSD ,or PFO. Right Ventricle The right ventricle is not well visualized secondary to technical limitations. Atria Right atrium not well visualized secondary to technical limitations. The left atrial size is normal. Mitral Valve There is no evidence of mitral valve prolapse. There is no vegetation seen on the mitral valve. There is no mitral valve stenosis. There is a mild amount of mitral regurgitation. Aortic Valve There is no aortic valve stenosis. No aortic regurgitation is present. Tricuspid Valve There is no tricuspid stenosis. Poor introgation.Probable trace TR with normal RVSP of 14 to 19 mm of Hg , with RA mean of 5 to 10. Pulmonic Valve The pulmonic valve is not well visualized. Great Vessels The aortic root is not well visualized. The inferior vena cava appeared normal and decreased > 50% with respiration (RAP 5-10 mmHg). Effusions Minimal pericardial effusion. : FARZAD MOTA Lakshmi
[2019-08-13] MEDS: TRAZODONE HCL 50 MG TABLET NG SCH (21:54)
[2019-08-14] MEDS: LISINOPRIL 10 MG TABLET NG SCH (09:02)
[2019-08-14] MEDS: TAMSULOSIN HCL 0.4 MG CAP.SR.24H PO SCH (09:03)
[2019-08-14] MEDS: HYDROCHLOROTHIAZIDE 25 MG TABLET NG SCH (09:03)
[2019-08-14] MEDS: CEFEPIME 2 GM/D5W RTU 2 GM/50 ML RTUPB IV SCH (09:04)
[2019-08-14] MEDS: POTASSIUM CHLORIDE 20 MEQ PACKET PO SCH (09:04)
[2019-08-14] MEDS: FONDAPARINUX SODIUM INJ 2.5 MG/0.5 ML DISP.SYRIN SUBCUT SCH (09:05)
[2019-08-14] MEDS: DONEPEZIL HCL 5 MG TABLET NG SCH (09:06)
[2019-08-14] MEDS ORDERED: AZITHROMYCIN 250 MG TABLET PO SCH (10:00)
--- NOTE | 2019-08-14 10:04 | PDOC DISCHARGE SUMMARY ---
Impression - Admit/DC Date/PCP Admission Date/Primary Care Provider: 08/09/19 11:32 Discharge Date: 08/14/19 - Discharge Diagnosis (1) Hypocalcemia Is this a current diagnosis for this admission?: Yes (2) Acute respiratory failure with hypoxia Is this a current diagnosis for this admission?: Yes (3) Hypomagnesemia Is this a current diagnosis for this admission?: Yes (4) Leukopenia Is this a current diagnosis for this admission?: Yes (5) Pneumonia Is this a current diagnosis for this admission?: Yes (6) Thrombocytopenia Is this a current diagnosis for this admission?: Yes (7) Hypokalemia Is this a current diagnosis for this admission?: Yes - Assessment Summary: Cultures urine cultures showed no pathogens continue IV Zithromax and IV cefepime while in the hospital. DC vancomycin. Chest x-ray from today is pending. Labs are either stable or improved.. Patient is on potassium 20 mEq every 12 hours will need to continue this at home Vital signs reveal pulse of in the 60s and regular stable, blood pressure approximate 150/60 and stable O2 sat in the 90s on room air, patient is afebrile now for several days. Possibly discharge patient tomorrow - Additional Information Resuscitation Status: Do Not Resuscitate Discharge Diet: As Tolerated Discharge Activity: Balance Activity w/Rest Prescriptions: Levofloxacin [Levaquin] 750 mg PO DAILY #7 Potassium Chloride [Potassium Chloride 20 Meq Packet] 20 meq PO Q12 #60 packet Home Medications: Amlodipine Besylate [Norvasc 5 mg Tablet] 5 mg PO DAILY 08/09/19 Atorvastatin Calcium [Lipitor 20 mg Tablet] 20 mg PO QHS 08/09/19 Donepezil HCl 10 mg PO DAILY 08/09/19 Furosemide [Lasix 20 mg Tablet] 20 mg PO QAM 08/09/19 Lisinopril/Hydrochlorothiazide [Lisinopril-Hctz 10-12.5 mg Tab] 1 each PO DAILY 08/09/19 Melatonin/Pyridoxine HCl (B6) [Melatonin 1 mg Tablet] 1 each PO QHS 08/09/19 Tamsulosin HCl [Flomax] 0.4 mg PO DAILY 08/09/19 Trazodone HCl 50 mg PO QHS 08/09/19 Donepezil HCl [Aricept 5 mg Tablet] 10 mg NG DAILY tablet 08/14/19 Levofloxacin [Levaquin] 750 mg PO DAILY #7 08/14/19 Potassium Chloride [Potassium Chloride 20 Meq Packet] 20 meq PO Q12 #60 packet 08/14/19 History of Present Illiness History of Present Illness: NIKHIL IRELAND is a 89 year old male Physical Exam Vital Signs: Temp Pulse Resp BP Pulse Ox 97.9 F 65 20 140/61 H 91 L 08/14/19 08:00 08/14/19 08:00 08/14/19 08:00 08/14/19 08:00 08/14/19 08:00 Intake & Output 08/13/19 08/14/19 08/15/19 06:59 06:59 06:59 Intake Total 850 560 50 Output Total 500 1180 Balance 350 -620 50 Weight 80.5 kg 78.4 kg Results Laboratory Results: WBC 4.8 10^3/uL (4.0-10.5) 08/13/19 09:08 RBC 3.68 10^6/uL (4.35-5.55) L 08/13/19 09:08 Hgb 10.9 g/dL (13.5-17.0) L 08/13/19 09:08 Hct 32.6 % (37.9-51.0) L 08/13/19 09:08 MCV 89 fl (80-97) 08/13/19 09:08 MCH 29.6 pg (27.0-33.4) 08/13/19 09:08 MCHC 33.4 g/dL (32.0-36.0) 08/13/19 09:08 RDW 14.5 % (11.5-14.0) H 08/13/19 09:08 Plt Count 106 10^3/uL (150-450) L 08/13/19 09:08 Lymph % (Auto) Not Reportable 08/13/19 09:08 [place] % (Auto) Not Reportable 08/13/19 09:08 Eos % (Auto) Not Reportable 08/13/19 09:08 Baso % (Auto) Not Reportable 08/13/19 09:08 Absolute Neuts (auto) Not Reportable 08/13/19 09:08 Absolute Lymphs (auto) Not Reportable 08/13/19 09:08 Absolute Monos (auto) Not Reportable 08/13/19 09:08 Absolute Eos (auto) Not Reportable 08/13/19 09:08 Absolute Basos (auto) Not Reportable 08/13/19 09:08 Total Counted 100 08/13/19 09:08 Seg Neutrophils % Not Reportable 08/13/19 09:08 Seg Neuts % (Manual) 72 % (42-78) 08/13/19 09:08 Band Neutrophils % 10 % (3-5) H 08/09/19 09:07 Lymphocytes % (Manual) 25 % (13-45) 08/13/19 09:08 Monocytes % (Manual) 3 % (3-13) 08/13/19 09:08 Eosinophils % (Manual) 0 % (0-6) 08/13/19 09:08 Basophils % (Manual) 0 % (0-2) 08/13/19 09:08 Metamyelocytes % 2 % (0) H 08/09/19 09:07 Abs Neuts (Manual) 3.5 10^3/uL (1.7-8.2) 08/13/19 09:08 Abs Lymphs (Manual) 1.2 10^3/uL (0.5-4.7) 08/13/19 09:08 Abs Monocytes (Manual) 0.1 10^3/uL (0.1-1.4) 08/13/19 09:08 Absolute Eos (Manual) 0.0 10^3/uL (0.0-0.6) 08/13/19 09:08 Abs Basophils (Manual) 0.0 10^3/uL (0.0-0.2) 08/13/19 09:08 Giant Platelets PRESENT 08/09/19 09:07 Platelet Comment DECREASED 08/13/19 09:08 Polychromasia SLIGHT 08/09/19 09:07 Poikilocytosis SLIGHT 08/09/19 09:07 PT 15.4 SEC (11.4-15.4) 08/09/19 09:07 INR 1.21 08/09/19 09:07 Carbonic Acid 1.25 mmol/L (1.05-1.35) 08/09/19 09:07 HCO3/H2CO3 Ratio 19:1 08/09/19 09:07 ABG pH 7.38 (7.35-7.45) 08/09/19 09:07 ABG pCO2 41.5 mmHg (35-45) 08/09/19 09:07 ABG pO2 131.3 mmHg (80-100) H 08/09/19 09:07 ABG HCO3 23.8 mmol/L (20-24) 08/09/19 09:07 ABG Total CO2 25.1 mmol/L (23-27) 08/09/19 09:07 ABG O2 Saturation 98.6 % (94-98) H 08/09/19 09:07 ABG Base Excess -1.3 mmol/L 08/09/19 09:07 FiO2 7.5 08/09/19 09:07 Sodium 135.3 mmol/L (137-145) L 08/13/19 09:08 Potassium 3.4 mmol/L (3.6-5.0) L 08/13/19 09:08 Chloride 103 mmol/L (98-107) 08/13/19 09:08 Carbon Dioxide 26 mmol/L (22-30) 08/13/19 09:08 Anion Gap 6 (5-19) 08/13/19 09:08 BUN 19 mg/dL (7-20) 08/13/19 09:08 Creatinine 0.80 mg/dL (0.52-1.25) 08/13/19 09:08 Est GFR ( Amer) > 60 (>60) 08/13/19 09:08 Est GFR (MDRD) Non-Af > 60 (>60) 08/13/19 09:08 Glucose 111 mg/dL (75-110) H 08/13/19 09:08 Lactic Acid 1.7 mmol/L (0.7-2.1) 08/09/19 09:07 Calcium 8.4 mg/dL (8.4-10.2) 08/13/19 09:08 Magnesium 2.0 mg/dL (1.6-2.3) 08/12/19 04:29 Total Bilirubin 0.6 mg/dL (0.2-1.3) 08/13/19 09:08 Direct Bilirubin 0.1 mg/dL (0.0-0.4) 08/13/19 09:08 Neonat Total Bilirubin Not Reportable 08/13/19 09:08 Neonat Direct Bilirubin Not Reportable 08/13/19 09:08 Neonat Indirect Bili Not Reportable 08/13/19 09:08 AST 25 U/L (17-59) 08/13/19 09:08 ALT 15 U/L (<50) 08/13/19 09:08 Alkaline Phosphatase 37 U/L (38-126) L 08/13/19 09:08 Troponin I 0.070 ng/mL 08/09/19 09:07 Total Protein 5.0 g/dL (6.3-8.2) L 08/13/19 09:08 Albumin 2.8 g/dL (3.5-5.0) L 08/13/19 09:08 Random Cortisol 88.10 ug/dL (None Established) 08/09/19 09:07 Urine Color YELLOW 08/09/19 09:35 Urine Appearance SLIGHTLY-CLOUDY 08/09/19 09:35 Urine pH 5.0 (5.0-9.0) 08/09/19 09:35 Ur Specific [place] 1.017 08/09/19 09:35 Urine Protein 30 mg/dL (NEGATIVE) H 08/09/19 09:35 Urine Glucose (UA) NEGATIVE mg/dL (NEGATIVE) 08/09/19 09:35 Urine Ketones 20 mg/dL (NEGATIVE) H 08/09/19 09:35 Urine Blood LARGE (NEGATIVE) H 08/09/19 09:35 Urine Nitrite NEGATIVE (NEGATIVE) 08/09/19 09:35 Urine Bilirubin NEGATIVE (NEGATIVE) 08/09/19 09:35 Urine Urobilinogen NEGATIVE mg/dL (<2.0) 08/09/19 09:35 Ur Leukocyte Esterase NEGATIVE (NEGATIVE) 08/09/19 09:35 Urine WBC (Auto) 4 /HPF 08/09/19 09:35 Urine RBC (Auto) 23 /HPF 08/09/19 09:35 Squamous Epi Cells Auto <1 /HPF 08/09/19 09:35 Urine Mucus (Auto) RARE /LPF 08/09/19 09:35 Urine Ascorbic Acid NEGATIVE (NEGATIVE) 08/09/19 09:35 Stl C. Difficile GDH Ag NEGATIVE (NEGATIVE) 08/12/19 14:02 Stl C.difficile Tox A&B NEGATIVE (NEGATIVE) 08/12/19 14:02 Time Trough Drawn 2130 08/12/19 21:30 Vancomycin Trough 9.4 ug/mL (5.0-20.0) 08/12/19 21:30 Slides for Path Review PATHOLOGIST REVIEWED 08/09/19 09:07 08/09/19 09:07 Troponin I 0.070 Impressions: Chest X-Ray 08/09/19 09:09 IMPRESSION: Bilateral parenchymal opacities right greater than left. SUPPORT DEVICE(S) IN EXPECTED LOCATIONS. Head CT 08/09/19 09:17 IMPRESSION: CHRONIC CHANGES OF ATROPHY AND MICROVASCULAR ISCHEMIA. NO ACUTE PROCESS. EVIDENCE OF ACUTE STROKE: NO. Chest X-Ray 08/10/19 06:00 IMPRESSION: Stable basilar opacities with volume loss in the left lower lobe. SUPPORT DEVICE(S) IN EXPECTED LOCATIONS. Chest X-Ray 08/13/19 00:00 IMPRESSION: Small pleural effusions. Airspace disease in the left base, atelectasis versus pneumonia. Limited airspace disease in the right base, pneumonia versus atelectasis. Stroke Is this a Stroke Patient?: No Acute Heart Failure - Is this a Heart Failure Patient?: No
[2019-08-14 15:34] VITALS: BP 140/61
== END 2019-08-14 16:30 | disposition home health service (06) | DRG 871 ==
LOC: ER 09:04 → EH 11:32 → ICU 13:00 → 4W 08-11 17:22
PROVIDERS: ADMIT Internal Medicine; ATTEND Internal Medicine
PROC: 5A1935Z Respiratory Ventilation, Less than 24 Consecutive Hours (ICD-10-PCS; principal; 2019-08-09)
PROC: 0BH17EZ Insertion of Endotracheal Airway into Trachea, Via Natural or Artificial Opening (ICD-10-PCS; 2019-08-09)
DX: A41.9 Sepsis, unspecified organism (principal); J96.01 Acute respiratory failure with hypoxia; J69.0 Pneumonitis due to inhalation of food and vomit; E87.6 Hypokalemia; E83.51 Hypocalcemia; E83.42 Hypomagnesemia; D69.6 Thrombocytopenia, unspecified; R65.20 Severe sepsis without septic shock; I10 Essential (primary) hypertension; E86.0 Dehydration; Z66 Do not resuscitate; K42.9 Umbilical hernia without obstruction or gangrene; D72.819 Decreased white blood cell count, unspecified; N40.0 Benign prostatic hyperplasia without lower urinary tract symptoms; F03.90 Unspecified dementia, unspecified severity, without behavioral disturbance, psychotic disturbance, mood disturbance, and anxiety; Z78.1 Physical restraint status; Z91.19 Patient's noncompliance with other medical treatment and regimen; Z86.73 Personal history of transient ischemic attack (TIA), and cerebral infarction without residual deficits; Z79.899 Other long term (current) drug therapy
CPT/HCPCS: 36415; 36600; 51702; 70450; 71045; 71046; 80048; 80053; 80202; 81001; 82533; 82803; 83605; 83735; 84484; 85025; 85610; 87040; 87070; 87077; 87086; 87186; 87205; 87324; 87449; 93005; 93010; 93306; 94002; 94003; 94640; 94799; 96365; 99291; J0456; J0610; J0692; J1170; J1652; J1940; J2250; J3370; J3475; J3480; J3490; J7030; J7040; J7060; J7620